=== PATIENT | female | born 1975 | race Caucasian/White ===

== ENCOUNTER 2016-07-12 02:32 | Emergency (ER) | payer MEDICARE, OTHER ==
[2016-07-12 05:15] LABS: HEMOGLOBIN 14.4 gm/dl (12.3-15.3); RED BLOOD COUNT 4.69 M/UL (4.00-5.10)
[2016-07-12 05:33] LABS: BUN/CREATININE RATIO 18 (0-10)
== END 2016-07-12 07:32 | disposition home or self-care (01) ==
LOC: ER1 02:32
PROVIDERS: Family Medicine
DX: N13.2 Hydronephrosis with renal and ureteral calculous obstruction (principal); F17.210 Nicotine dependence, cigarettes, uncomplicated; Z90.49 Acquired absence of other specified parts of digestive tract
CPT/HCPCS: 36415; 80053; 81001; 82150; 83690; 84703; 85025; 87086; 96361; 96374; 96375; 99284; J2270; J2405; J7030; J7050; Q9962

== ENCOUNTER → 2016-07-28 | Outpatient (CLI) | payer MEDICARE, OTHER | LOC: RAD 11:19 | DX: N20.1 Calculus of ureter (principal) | CPT/HCPCS: 74000 ==

== ENCOUNTER → 2016-08-11 | Outpatient (CLI) | payer MEDICARE, OTHER | LOC: MAMO 07:59 | DX: N63 Unspecified lump in breast (principal) | CPT/HCPCS: G0204 ==

== ENCOUNTER → 2020-11-14 | Outpatient (CLI) | payer MEDICARE | LOC: KOH-I 13:29 | DX: J20.9 Acute bronchitis, unspecified (principal) | CPT/HCPCS: 71046 ==